=== PATIENT | female | born 1970 | race Caucasian/White ===

== ENCOUNTER 2024-10-26 07:22 | Emergency (ER) | payer BC ==
[~2024-10-26] VITALS: Ht 172.7 cm; Wt 98.2 kg
--- NOTE | 2024-10-26 08:02 | Physician Documentation ---
History of Present Illness ~ Chief Complaint: Vomiting Stated Complaint: VOMITING Time Seen by MD: 07:50 Primary Medical Doctor: Javi in [facility] Mode of Arrival: POV, Ambulatory HPI 54-year-old female presenting with nausea and vomiting for the past three days. The patient is from [place] and on a long road trip visiting different sites and [place] and states that the symptoms started while she was on the road. She reports multiple episodes of vomiting and continuous nausea. She has also felt weak and fatigued. She has not been able to keep much down aside from some water. She has also had some diarrhea. States that she went to urgent care a few days ago and was prescribed some Imodium and Zofran. The diarrhea seems to have subsided but the nausea does continue. She denies any fever, chills, urinary symptoms, vaginal bleeding or any other associated symptoms. Medication Reconciliation Allergies: Coded Allergies: Penicillins (Verified Allergy, Intermediate, hives, 10/26/24) aspirin (Verified Allergy, Intermediate, hives, 10/26/24) Past Medical History Past Medical History: No Pertinent History Review of Systems All Other Systems at this time: Reviewed and Negative Physical Exam Vital Signs: Temperature: 99.1, Source: Oral, Heart Rate: 86, Respiratory Rate: 12, BP: 130/91, Pulse Oximetry: 99, Weight: 98.200 Oxygen Flow Rate: 0 Physical Exam I have reviewed the triage vitals. CONST: Well developed and well nourished. In no acute distress HENT: Head Atraumatic EYES: Pupils are equal, round and reactive to light. Normal conjunctiva NECK: Normal range of motion. Supple. CARDIO: Normal rate and regular rhythm. No murmurs, rubs, or gallops. S1, S2. PULM/CHEST: No respiratory distress. Lungs clear to auscultation. No wheeze ABD: Soft and nontender. Nondistended. Bowel sounds normal. No guarding. : Exam deferred MSK: No edema. No deformity. NEURO: Alert and oriented to person, place and time. Moving all extremities SKIN: Warm and dry. PSYCH: Normal mood and affect. Good eye contact. Progress Results/Orders Results/Orders Completed Orders - MEGAN RUBIN MD Electrocardiogram (10/26/24 08:02) Cbc/Diff (10/26/24 08:02) MG (10/26/24 08:02) Normal Saline 1000ml (Sodium Chloride 10 (10/26/24 08:05) Hs Troponin I W Calculations (10/26/24 08:02) CMP (10/26/24 08:02) Hcg, Ur Ql (10/26/24 08:02) Ondansetron Inj. (Zofran 4mg/2ml Vial) (10/26/24 08:05) Ua W/Microscopic, Cult If Ind (10/26/24 07:44) Medications Received in ER Medications (Trade) Dose Ordered Sig/Sasha Route PRN Reason Start Time Stop Time Status Last Admin Dose Admin (sodium chloride 1000ml IV soln) 1,000 ml ONCE ONCE IVB 10/26/24 08:05 10/26/24 08:06 DC 10/26/24 08:26 1,000 ML (Zofran 4mg/2ml vial) 4 mg ONCE ONCE IV 10/26/24 08:05 10/26/24 08:06 DC 10/26/24 08:26 4 MG Vital Signs 10/26/24 10/26/24 07:28 07:37 Temp 99.1 Pulse 86 Resp 16 12 B/P (MAP) 130/91 Pulse Ox 99 O2 Flow Rate 0 Laboratory Tests Test 10/26/24 07:44 10/26/24 08:36 10/26/24 08:38 Urine Specimen Description Cln catch midstream Urine Color Yellow Urine Clarity Clear Urine pH 6.0 Urine Specific [place] <=1.005 Urine Protein Negative Urine Glucose (UA) Negative Urine Ketones Negative Urine Occult Blood Moderate H Urine Nitrite Negative Urine Bilirubin Negative Urine Urobilinogen 0.2 Urine Leukocyte Esterase Negative Urine RBC 3-10 Urine WBC 0-4 Urine Squamous Epithelial Cells Moderate Urine Transitional Epithelial Cells Urine Bacteria None seen Urine Mucus Few Urine Culture Indicated Not ind Volume Urine Centrifuged 10 ml Urine HCG, Qualitative Negative Urine Comment White Blood Count 6.0 Red Blood Count 3.88 L Hemoglobin 12.7 Hematocrit 37.7 Mean Corpuscular Volume 97.2 Mean Corpuscular Hemoglobin 32.7 H Mean Corpuscular Hemoglobin Concent 33.7 Red Cell Distribution Width 13.7 Platelet Count 331 Mean Platelet Volume 7.5 Neutrophils (%) (Auto) 74.7 Lymphocytes (%) (Auto) 16.5 L Monocytes (%) (Auto) 7.6 Eosinophils (%) (Auto) 0.6 Basophils (%) (Auto) 0.6 Neutrophils # (Auto) 4.5 Lymphocytes # (Auto) 1.0 L Monocytes # (Auto) 0.5 Eosinophils # (Auto) 0.0 Basophils # (Auto) 0.0 CBC Comment Sodium Level 142 Potassium Level 3.5 Chloride Level 106 Carbon Dioxide Level 27.0 Anion Gap 9 Blood Urea Nitrogen 5 L Creatinine 1.14 H Estimated GFR/1.73 m2 50 BUN/Creatinine Ratio 4.4 L Glucose Level 102 Calcium Level 8.5 Magnesium Level 2.0 Total Bilirubin 0.6 Aspartate Amino Transf (AST/SGOT) 17 Alanine Aminotransferase (ALT/SGPT) 17 Alkaline Phosphatase 57 Total Protein 6.9 Albumin 3.7 Globulin 3.2 Albumin/Globulin Ratio 1.2 Chemistry Comments Troponin I High Sensitivity 5 EKG/XRAY/CT/US/VASC/MRI EKG : Additional Comment EKG as interpreted by ED MD with normal sinus rhythm with a rate of 76 beats per minute, no ischemia, normal axis Medical Decision Making Additional Comments 54-year-old female presenting with nausea and vomiting secondary to likely acute viral gastroenteritis. Her lab workup is grossly unremarkable. She is not deficient in any electrolytes nor does she have any significant elevation in her BUN or creatinine. Patient was medicated with 1 L of IV normal saline as well as 4 mg of IV Zofran with improvement and resolution of symptoms. I suspect that this is viral in nature and should resolve on its own within the next 24-48 hours. I advised the patient to continue with the Zofran that she had already been prescribed at the urgent care as needed. Also advised on clear liquids for the next 1-2 days but to ensure that she is getting adequate hydration. Monitor symptoms for improvement. She may advance as tolerated as she is able. Advised to follow up with her primary care physician when she gets back home. Return to any emergency department should his symptoms acutely worsen. Departure Disposition: 01 HOME / SELF CARE / HOMELESS Impression: Primary Impression: Viral gastroenteritis Condition: Improved Discharge Instructions: Viral Gastroenteritis, Adult Additional Instructions: Take Zofran as prescribed as needed for any nausea. Recommend adequate hydration and small amounts. Please continue with Powerade or liquid IV and then advance your diet as tolerated. Follow up with your primary care physician when you get back home. Please go to any emergency department along the way should your symptoms worsen at any point. Referrals: NO PRIMARY CARE PROVIDER (PCP) Signature Scribe Signature: 1 Attestation: 1 MEGAN RUBIN MD October 26, 2024 08:02
[2024-10-26 08:21] LABS: URINE HCG NEGATIVE (NEG)
[2024-10-26] MEDS: normal saline 1000ML IV soln IVB ONE (08:26)
[2024-10-26] MEDS: ondansetron/PF 4mg/2ml inj IV ONE (08:26)
--- NOTE | 2024-10-26 08:30 | ELECTROCARDIOGRAPH REPORT ---
[facility] Test Date: 2024-10-26 Test Time: 08:27:26 Pat Name: GRAHAM LAO Department[id number] Room: Gender: F [employer]: : 1970 Requested By: MEGAN RUBIN Order Number: [id number] Reading MD: Measurements Intervals [place] Rate: 76 P: 24 AL: 133 QRS: 30 QRSD: 103 T: -1 QT: 386 QTc: 435 Interpretive Statements Sinus rhythm Low voltage, precordial leads Borderline T abnormalities, diffuse leads Baseline wander in lead(s) V3 Please click the below link to view image of tracing.
[2024-10-26 08:35] LABS: BILIRUBIN,URINE NEGATIVE (Neg); CLARITY,URINE CLEAR (Clear); COLOR,URINE YELLOW (Yellow); GLUCOSE, URINE NEGATIVE (Neg); KETONES,URINE NEGATIVE (Neg); LEUKOCYTE ESTERASE ,URINE NEGATIVE (Neg); NITRITES, URINE NEGATIVE (Neg); OCCULT BLOOD,URINE MODERATE (Neg); PROTEIN,URINE NEGATIVE (Neg); UROBILINOGEN,URINE 0.2 E.U/dL (0.2-1.0)
[2024-10-26 09:16] LABS: UA COLLECTION TYPE CLN CATCH MIDSTREAM
[2024-10-26 09:17] LABS: BASOPHILS % (AUTO) 0.6 % (0-1); EOSINOPHILS % (AUTO) 0.6 % (0-6); HEMATOCRIT 37.7 % (35.0-45.0); HEMOGLOBIN 12.7 g/dl (12.0-16.0); LYMPHOCYTES % (AUTO) 16.5 % (21-51); MEAN CORPUSCULAR HEMOGLOBIN 32.7 PG (27.0-31.0); MEAN CORPUSCULAR HGB CONC 33.7 g/dL (33.0-36.5); MEAN CORPUSCULAR VOLUME 97.2 FL (78-98); MEAN PLATELET VOLUME 7.5 FL (7.4-10.4); MONOCYTES # (AUTO) 0.5 X10'3 (0-0.9); MONOCYTES % (AUTO) 7.6 % (2-12); NEUTROPHILS # (AUTO) 4.5 X10'3 (1.8-7.7); NEUTROPHILS % (AUTO) 74.7 % (42-75); PLATELET COUNT 331 X10'3 (140-440); RED BLOOD COUNT 3.88 X10'6 (4.20-5.60); RED CELL DISTRIBUTION WIDTH 13.7 % (11.5-14.5)
[2024-10-26 09:29] LABS: WBC,URINE 0-4 /HPF (0-4)
[2024-10-26 09:32] LABS: MUCUS STRANDS FEW /LPF (Neg); SQUAMOUS EPITHELIAL CELL,UR MODERATE /LPF (FEW)
[2024-10-26 09:37] LABS: BACTERIA,URINE NONE SEEN /HPF (Neg)
[2024-10-26 09:46] LABS: ALANINE AMINOTRANSFERASE 17 U/L (12-78); ALBUMIN 3.7 G/DL (3.4-5.0); ALBUMIN/GLOBULIN RATIO 1.2 (1.1-1.5); ALKALINE PHOSPHATASE 57 IU/L (46-116); ANION GAP 9 (8-16); ASPARTATE AMINO TRANSFERASE 17 U/L (10-37); BILIRUBIN,TOTAL 0.6 MG/DL (0.1-1.0); BLOOD UREA NITROGEN 5 MG/DL (7-18); BUN/CREATININE RATIO 4.4 (10.0-20.0); CALCIUM 8.5 MG/DL (8.5-10.1); CHLORIDE 106 MMOL/L (99-107); CREATININE 1.14 MG/DL (0.40-0.90); GLUCOSE 102 MG/DL (70-104); POTASSIUM 3.5 MMOL/L (3.5-5.1); SODIUM 142 MMOL/L (135-145); TOTAL PROTEIN 6.9 G/DL (6.4-8.2); eCRCL 58 ML/MIN; eGFR 50 ML/MIN
[2024-10-26 10:12] VITALS: BP 134/80; PULSE 67; RESP 16; TEMP 99.1; O2SAT 99
== END 2024-10-26 10:23 | disposition home or self-care (01) ==
LOC: ER 07:23
DX: A08.4 Viral intestinal infection, unspecified (principal); Z88.0 Allergy status to penicillin; Z88.6 Allergy status to analgesic agent
CPT/HCPCS: 36415; 80053; 81001; 81025; 83735; 84484; 85025; 93005; 96361; 96374; 99284; J2405; J7030